=== PATIENT | female | born 1945 | race Caucasian/White ===

== ENCOUNTER → 2016-08-04 | Outpatient (CLI) | payer MEDICARE, OTHER ==
[~2016-08-04] MED LIST: ASPIRIN EC81 MG PO; CALTRATE-600 D600 MG PO; CELEXA40 MG PO; FOSAMAX70 MG PO; GLUCOPHAGE1000 MG PO; LASIX DPS20 MG PO; LYRICA75 MG PO; MAG-OX400 MG PO; MICRO-K DPS10 MEQ PO; NORVASC DPS10 MG PO; ZOCOR DPS40 MG PO
--- NOTE | ~2016-08-04 | ECH ---
Transthoracic Echocardiography Report (TTE) Demographics Patient Name RODOLFO FRIEDMAN Date of Study 08/04/2016 Patient Number [id number] Visit Number [id number] Date of 1945 Room Number Accession Number [id number] Gender Female Age 71 year(s) Referring Cooper BAIRD Family Practitioner Jewell Oconnor [facility] Physician Stephen Physician Interpreting King Shane Cintron MD Academic Services Professional Physician Supervising Ordering Physician Cooper Mitchell MD/P Nurse Stress Corporate Trust Officer Conclusions Summary Technically good exam. The estimated left ventricular ejection fraction is 60-65%. Mild concentric left ventricular hypertrophy. Diastolic assessment reveals Grade I diastolic dysfunction. There is mild aortic regurgitation by color Doppler. The aortic root appears mildly dilated. The maximum diameter measures 3.5 cm. The ascending aorta appears mildly dilated. The maximum diameter measures 3.8 cm. Procedure Type of Study TTE procedure:Echo Complete SF. Procedure Date Date: 08/04/2016 Start: 12:50 PM Technical Quality: Good visualization Indications:Chest pain, Abnormal Stress Test and Shortness of breath. Appropriate Use Criteria: 9 Height: 68 inches Weight: 207 pounds BSA: 2.07 m Rhythm: NSR HR: 71 bpm BP: 136/65 mmHg M-Mode/2D Measurements LV Diastolic Dimension: 4.47 cm LV Systolic Dimension: 2.7 cm LV Septum Diastolic: 1.15 cm LV PW Diastolic: 1.14 cm AO Root Dimension: 3.5 cm Cardiac Output: 6.15 l/min LA Dimension: 3.55 cm Cardiac Index: 2.97 l/min*m RV Diastolic Dimension: 4.18 cm LA volume index: 34 ml/m LVOT: 2.02 cm LVOT VTI: 27.03 cm RV Base: 2.8 cm LV Stroke volume: 86.58 ml RV Mid: 1.9 cm LV Stroke volume index: 41.83 ml/m TAPSE: 2.3 cm TDI-S': 14 cm/s Doppler Measurements AV Peak Velocity: 1.6 m/s MV Peak E-Wave: 0.66 m/s AV Peak Gradient: 10.24 mmHg MV Peak A-Wave: 0.95 m/s AV Mean Gradient: 4.93 mmHg MV E/A Ratio: 0.7 LVOT Peak Velocity: 1.32 m/s MV P1/2t: 91.7 msec AV Area (Continuity):3.11 cm AV P1/2t: 498.3 msec MV Deceleration Time: 281.8 msec TR Velocity:2.35 m/s MV Area (PHT): 2.4 cm TR Gradient:22.09 mmHg PV Peak Velocity: 0.96 m/s Estimated RAP:3 mmHg PV Peak Gradient: 3.67 mmHg Estimated RVSP: 25 mmHg Estimated PASP: 25.09 mmHg E' Septal Velocity: 0.05 m/s A' Septal Velocity: 0.09 m/s E' Lateral Velocity: 0.05 m/s A' Lateral Velocity: 0.1 m/s RA Area: 13.11 cm Findings Left Ventricle The left ventricle is normal in size . Mild concentric left ventricular hypertrophy. Diastolic assessment reveals Grade I diastolic dysfunction. Right Ventricle Normal right ventricle structure and function. Left Atrium Normal left atrial size. Right Atrium Normal right atrial size. Mitral Valve Normal mitral valve structure and function. Trivial mitral regurgitation by color Doppler. Aortic Valve Normal aortic valve structure and function. There is mild aortic regurgitation by color Doppler. Tricuspid Valve Normal tricuspid valve structure and function. Trivial tricuspid regurgitation by color Doppler. Normal pulmonary pressures. Pulmonic Valve Normal pulmonic valve structure and function. Trivial pulmonic valve regurgitation by color Doppler. Pericardial Effusion No evidence of pericardial effusion. Miscellaneous The aortic root appears mildly dilated. The maximum diameter measures 3.5 cm. The ascending aorta appears mildly dilated. The maximum diameter measures 3.8 cm. Pleural Effusion No evidence of pleural effusion. Signature
== END | disposition home or self-care (01) ==
LOC: CARD 12:16
DX: R07.9 Chest pain, unspecified (principal); R06.02 Shortness of breath; I51.89 Other ill-defined heart diseases; I35.1 Nonrheumatic aortic (valve) insufficiency

== ENCOUNTER 2016-08-06 05:57 | Day surgery (SDC) | payer MEDICARE, OTHER ==
[~2016-08-06] VITALS: Ht 170.2 cm; Wt 93.5 kg
--- NOTE | ~2016-08-06 | CATH ---
Cardiac Diagnostic Report Demographics Patient Name ELDER GUILLORY Gender Female Date of 1945 Age 71 year(s) Patient Number [id number] Date of Study 08/06/2016 Visit Number [id number] Room Number Corporate ID Ht 172.72 cm Wt 93.89 kg Accession Number [id number] BSA 2.07 m kg/m Referring Lloyd Talamantes Primary Physician Physician MD Jordon Gamboa MD Secondary Physician Physician Stephen Diagnostic Cooper BAIRD Assisting Physician Physician Stephen Interventional Cooper BAIRD Physician Industrial Staff Nurse Physician Stephen Findings and Conclusions Diagnostic Findings and Conclusion Severe three vessel coronary artery disease. Diagnostic Recommendations CT surgery consult. Procedure Description The patient was brought to the diagnostic cardiac catheterization laboratory in the fasting, non-sedated state. Informed consent was obtained in the written and verbal form after the risks and benefits were explained. The patient had no further questions and agreed to proceed. The planned puncture-incision site(s) were clipped and prepped with ChloraPrep and draped in the usual sterile manner. Conscious sedation, supplemental oxygen, and pain control medications were delivered by a registered nurse under physician guidance. Surface ECG rhythm, blood pressure measurement, and pulse oximetry were monitored throughout the procedure. Arterial access. The right radial access site was infiltrated with lidocaine. The vessel was entered with the Seldinger technique. A 6F sheath was advanced into the vessel and used for catheter placement. Selective left coronary angiography. A TIG catheter was advanced into the left coronary vessel ostium under Fluoroscopic guidance. Contrast was injected by hand. Images were obtained in multiple projections. Selective right coronary angiography. A MPA1 catheter was advanced into the right coronary vessel ostium under fluoroscopic guidance. Contrast was injected by hand. Images were obtained in multiple projections. Left heart catheterization. An angled pigtail catheter was advanced across the aortic valve to the left ventricle under fluoroscopic guidance. Resting hemodynamics were obtained. LV pressure was obtained. The catheter was gradually withdrawn into the aorta with continuous pressure recording. Hemostasis: The sheath was removed and a TR Band was placed. Hemostasis was achieved. The patient was transferred to the pre/post procedure nursing floor via cart accompanied by a nurse. The patient left the laboratory in stable condition. Diagnostic Cath Status: Elective Procedure Procedure Type Diagnostic procedure:Angiography:, Coronary Angios w/[facility] Indications: Chest discomfort and Shortness of breath. The procedure was explained in detail to the patient. Risks, complications and alternative treatments were reviewed. Written consent was obtained. Medications Reviewed with Patient prior to Procedure. Complications: No Complication. Angiographic Findings Dominance: Right Cardiac Arteries and Lesion Findings LMCA: Abnormal. LAD: Abnormal. Lesion on Dist LAD: 20% stenosis . Lesion on Prox LAD: 70% stenosis . Lesion on Mid LAD: 100% stenosis . Lesion on 1st Diag: Mid subsection.95% stenosis . LCx: Abnormal. Lesion on Prox CX: 70% stenosis . Lesion on 1st Ob [place]: Proximal subsection.80% stenosis . RCA: Abnormal. Lesion on Mid RCA: 70% stenosis .The lesion was heavily calcified. Comments:ectatic Lesion on 1st RPL: Proximal subsection.60% stenosis . Coronary Tree Procedure Data Procedure Date Date: 08/06/2016Start: 08:09 AMEnd: 08:35 AM Entry Locations - Percutaneous access was performed through the Radial artery (Primary location). A 6 Fr sheath was inserted. Hemostasis was successfully obtained using a TR band. Procedure Medications Order and Administration + + +-------+--------+ !Time !Medication !Dosage !Route ! + + +-------+--------+ !08/06/2016 !Versed !1 mg !I.V. ! !07:54 AM ! ! ! ! + + +-------+--------+ !08/06/2016 !Fentanyl !25 mcg !I.V. ! !07:54 AM ! ! ! ! + + +-------+--------+ !08/06/2016 !Sodium Chloride !10 ml !I.V. ! !07:54 AM ! ! ! ! + + +-------+--------+ !08/06/2016 !Oxygen !2 l/min!NC ! !07:58 AM ! ! ! ! + + +-------+--------+ 08/06/2016 !Versed !1 mg !I.V. ! !08:07 AM ! ! ! ! + + +-------+--------+ !08/06/2016 !Fentanyl !25 mcg !I.V. ! !08:07 AM ! ! ! ! + + +-------+--------+ 08/06/2016 !SF Radial Cocktail: 200mcg Nitro, 2.5 mg ! !I.A. ! !08:10 AM !Verapamil, 5000u Heparin ! ! ! + + +-------+--------+ Devices Used - A6 Fr6F TIG CATHETERwas used for:LeftsideCoronary Angios. - A6 FrCATH 6FR MPA-1 CATHETER 100CMwas used for:RightsideCoronary Angios. - A6 FrCATH 6FR PIG 145 110CM CATHETERwas used for:LeftsideLV Pressures. Contrast Material - Isovue 10693 ml Fluoroscopy Time: Diagnostic: 870:00 minutes. Total: 870:00 minutes. Fluoroscopy Dose: Diagnostic: 4963.9 mGy. Total: 4963.9 mGy. Estimated Blood Loss: 8 ml. Medical History Risk Factors The patient risk factors include:treated hypercholesterolemia, treated hypertension, diabetes mellitus, last creatinine: 1.1 mg/dl, creatinine clearance: 69.53 ml/min and dyslipidemia. Admission Data Admission Date: 08/06/2016 Admission Time: 05:57 AM Arrival Date: 08/06/2016 Arrival Time: 07:45 AM Admit Source: Other Insurance Payors: Medicare. Clinical Evaluation Leading to Procedure - The patient's CAD presentation was assessed as: Unstable angina. - The patient's anginal syndrome during the past two weeks was assessed as: Class III according to the [place] Cardiovascular [employer] Classification System (CCS). Anti-anginal medications were prescribed during the past two weeks. The medications are: Beta Blockers and Ca channel Blockers. Hemodynamics Condition: Rest O2 Consumption: Estimated: 184.33Heart Rate: 62 bpm Pressures (mmHg) +-----+ + !Site !Pressure ! +-----+ + !AO !135/63 (94) ! +-----+ + !LV !139/4 ,9 ! +-----+ + !AO !138/64 (95) ! +-----+ + !LV !134/4 ,9 ! +-----+ + Valve Gradients and Areas + +---------+---------+---------+ +---------+ + !Valve !Peak !Mean !Area !Index !Flow !Source ! + +---------+---------+---------+ +---------+ + !Aortic !0 !0 ! ! ! ! ! + +---------+---------+---------+ +---------+ + !Aortic !0 !0 ! ! ! ! ! + +---------+---------+---------+ +---------+ + Shunts Oxygen Values O2 Capacity 171.36 O2 Consumption 184.33 Signatures
== END 2016-08-06 11:15 | disposition home or self-care (01) ==
LOC: SSS
DX: I25.110 Atherosclerotic heart disease of native coronary artery with unstable angina pectoris (principal); E11.9 Type 2 diabetes mellitus without complications; I10 Essential (primary) hypertension; F32.9 Major depressive disorder, single episode, unspecified; J45.909 Unspecified asthma, uncomplicated; K21.9 Gastro-esophageal reflux disease without esophagitis; F41.9 Anxiety disorder, unspecified; Z88.0 Allergy status to penicillin; Z90.49 Acquired absence of other specified parts of digestive tract

== ENCOUNTER → 2016-08-26 | Outpatient (CLI) | payer MEDICARE, OTHER | END | disposition home or self-care (01) | LOC: RAD.S 08-23 13:48 | DX: M79.604 Pain in right leg (principal); M79.605 Pain in left leg; L76.34 Postprocedural seroma of skin and subcutaneous tissue following other procedure ==

== ENCOUNTER → 2016-09-10 | Outpatient (CLI) | payer MEDICARE, OTHER | END | disposition home or self-care (01) | LOC: RAD.S 10:00 | DX: R07.9 Chest pain, unspecified (principal); J90 Pleural effusion, not elsewhere classified; I51.7 Cardiomegaly; Z95.1 Presence of aortocoronary bypass graft ==

== ENCOUNTER → 2016-09-14 | Outpatient (CLI) | payer MEDICARE, OTHER | END | disposition home or self-care (01) | LOC: RAD.S 12:34 | PROC: 0W9B3ZZ Drainage of Left Pleural Cavity, Percutaneous Approach (ICD-10-PCS; principal; 2016-09-14) | DX: J90 Pleural effusion, not elsewhere classified (principal); Z95.1 Presence of aortocoronary bypass graft ==